=== PATIENT | male | born 1965 | race Caucasian/White ===

== ENCOUNTER 2017-08-21 12:20 | Emergency (ER) | payer MEDICARE ==
[2017-08-21 14:23] LABS: Basophils % (Auto) 0.1 % (0.0-1.8); Hemoglobin 16.7 gm/dl (11.8-15.2); Lymphocytes # (Auto) 0.5 K/mm3 (1.2-5.4); Lymphocytes % (Auto) 4.5 % (13.4-35.0); Mean Corpuscular HGB Conc 33 % (32-34); Mean Corpuscular Hemoglobin 30 pg (28-32); Mean Corpuscular Volume 89 fl (84-94); Monocytes # (Auto) 1.1 K/mm3 (0.0-0.8); Monocytes % (Auto) 9.9 % (0.0-7.3); Platelet Count 216 K/mm3 (140-440); Red Blood Count 5.62 M/mm3 (3.65-5.03); Red Cell Distribution Width 13.7 % (13.2-15.2)
[2017-08-21 14:26] LABS: Calcium 9.3 mg/dL (8.4-10.2)
--- NOTE | 2017-08-21 23:01 | Emergency Department Report ---
HPI - General Chief Complaint: Syncope Time Seen by Provider: 08/21/17 22:47 - HPI HPI: This is a 52-year-old male presents to the emergency department with a 2 day history of some nausea with one or 2 episodes of vomiting and some copious diarrhea. Yesterday the patient also says he passed out once he might had some low blood pressure at the time. Currently he has no complaints other than some diarrhea. He says he goes about 5 times per day. He has not taken anything for her symptoms by presentation. He has a past medical history of borderline diabetes. He follows up with [facility]. He denies any abdominal pain, chest pain, fever, headache, vision change. No recent travel or sick contacts at home. ED Past Medical Hx - Past Medical History Previous Medical History?: Yes Hx Hypertension: Yes Hx Diabetes: Yes - Surgical History Past Surgical History?: No - Social History Smoking Status: Never Smoker Substance Use Type: None ED Review of Systems ROS: Stated complaint: DIARRHEA/ABD PAIN Other details as noted in HPI Comment: All other systems reviewed and negative Constitutional: denies: chills, fever Eyes: denies: eye pain, eye discharge, vision change ENT: denies: ear pain, throat pain Respiratory: denies: cough, shortness of breath, wheezing Cardiovascular: syncope. denies: chest pain, palpitations Gastrointestinal: nausea, vomiting, diarrhea Genitourinary: denies: urgency, dysuria Musculoskeletal: denies: back pain, joint swelling, arthralgia Skin: denies: rash, lesions Neurological: denies: headache, weakness, paresthesias Physical Exam - Physical Exam Vital Signs: Vital Signs 08/21/17 13:20 Temperature 97.9 F Pulse Rate 119 H Respiratory 16 Rate Blood Pressure 99/70 O2 Sat by Pulse 97 Oximetry Physical Exam: GENERAL: The patient is well-developed well-nourished. HENT: Normocephalic. Atraumatic. Patient has moist mucous membranes. EYES: Extraocular motions are intact. Pupils equal reactive to light bilaterally. NECK: Supple. Trachea is midline. CHEST/LUNGS: Clear to auscultation. There is no respiratory distress noted. HEART/CARDIOVASCULAR: Regular. There is no tachycardia. There is no murmur. ABDOMEN: Abdomen is soft, nontender. Patient has normal bowel sounds. There is no abdominal distention. SKIN: Skin is warm and dry. NEURO: The patient is awake, alert, and oriented. The patient is cooperative. The patient has no focal neurologic deficits. The patient has normal speech and gait. MUSCULOSKELETAL: There is no tenderness or deformity. There is no limitation range of motion. There is no evidence of acute injury. ED Course Vital Signs 08/21/17 13:20 Temperature 97.9 F Pulse Rate 119 H Respiratory 16 Rate Blood Pressure 99/70 O2 Sat by Pulse 97 Oximetry ED Medical Decision Making - Lab Data Result diagrams: 08/21/17 13:24 08/21/17 13:24 - EKG Data -: EKG Interpreted by Me EKG shows normal: sinus rhythm, axis, intervals, QRS complexes, ST-T waves Rate: normal - EKG Data When compared to previous EKG there are: previous EKG unavailable Interpretation: normal EKG - Medical Decision Making The patient has basically been asymptomatic since being in the emergency department. Since he does not have any abdominal pain, did not feel that any imaging was necessary at this time. Labs are mostly unremarkable except for some renal insufficiency. This may be secondary to his lisinopril HCTZ, or could be dehydration, or the patient may just have some chronic kidney disease that he is unaware of. Vital signs stable throughout his ED course including being afebrile. The tachycardia that he presented with resolved without any significant treatment. Patient says that he has primary care follow-up with [facility]. He was encouraged to follow up with them and was also given a referral for a digital advertising specialist. He will increase his oral rehydration and return to the emergency Department with any worsening of symptoms or any acute distress. - Differential Diagnosis viral syndrome, food poisoning, gastroenteritis Critical Care Time: No Critical care attestation.: If time is entered above; I have spent that time in minutes in the direct care of this critically ill patient, excluding procedure time. ED Disposition Clinical Impression: Renal insufficiency Diarrhea Qualifiers: Diarrhea type: unspecified type Qualified Code(s): R19.7 - Diarrhea, unspecified Disposition: DC-01 TO HOME OR SELFCARE Is pt being admited?: No Condition: Stable Instructions: Acute Diarrhea (ED), Impaired Kidney Function (ED) Additional Instructions: Please follow-up with your primary care physician in the next few days. I have given him a referral for a local digital advertising specialist/kidney doctor, Dr. Albert, to follow up regarding your impaired kidney function. Return to the emergency Department with any worsening of your symptoms or any acute distress. Referrals: WILLY ALBERT MD [Staff Physician] - 3-5 Days [facility] [Outside] - 3-5 Days
[2017-08-21 23:26] LABS: Bilirubin,Urine NEG (Negative); Blood,Urine NEG (Negative); Color,Urine Amber (Yellow); Hyaline Casts,Urine 32 /LPF; Mucus,Urine FEW /HPF; Nitrite,Urine NEG (Negative); Urobilinogen,Urine < 2.0 mg/dL (<2.0)
[2017-08-22 00:16] VITALS: BP 111/78
== END 2017-08-22 04:44 | disposition home or self-care (01) ==
LOC: ED 12:20
DX: N28.9 Disorder of kidney and ureter, unspecified (principal); R19.7 Diarrhea, unspecified; I10 Essential (primary) hypertension; E11.9 Type 2 diabetes mellitus without complications
CPT/HCPCS: 36415; 80048; 81001; 85025; 93005; 93010

== ENCOUNTER 2017-09-02 11:59 | Outpatient (CLI) | payer MEDICARE ==
[2017-09-02 12:21] LABS: Bacteria,Urine 1+ /HPF (Negative); Bilirubin,Urine NEG (Negative); Blood,Urine NEG (Negative); Color,Urine Yellow (Yellow); Mucus,Urine 1+ /HPF; Nitrite,Urine NEG (Negative); Protein,Urine <15 mg/dL mg/dL (Negative); RBC,Urine < 1.0 /HPF (0.0-6.0)
[2017-09-02 12:42] LABS: Albumin 4.1 g/dL (3.9-5); BUN/Creatinine Ratio 11; Blood Urea Nitrogen 11 mg/dL (9-20); Calcium 8.7 mg/dL (8.4-10.2); Hemolysis Index 7
== END 2017-09-02 12:00 | disposition home or self-care (01) ==
LOC: LAB 11:59
PROVIDERS: ATTEND Internal Medicine Nephrology
DX: N17.9 Acute kidney failure, unspecified (principal); I10 Essential (primary) hypertension
CPT/HCPCS: 36415; 80048; 81001; 82040; 83735; 84100